=== PATIENT | male | born 1980 | race American Indian/Alaskan Native ===

== ENCOUNTER 2018-10-21 15:56 | Emergency (ER) | payer SELFPAY ==
--- NOTE | 2018-10-21 16:26 | Emergency Department Report ---
ED Syncope HPI - General Chief Complaint: Syncope Stated Complaint: POSSIBLE SEIZURE Time Seen by Provider: 10/21/18 16:17 Source: patient Exam Limitations: clinical condition, other - History of Present Illness Initial Comments: Patient is a 38-year-old male that presents emergency room with seizure-like activity and syncope. Patient was up in the L&D part of the hospital visiting his and the patient lost consciousness and seized. Patient does not have a history of seizure or syncope. Patient states he started back normal except for slightly lightheaded and tired. Patient states he doesn't recall what happened he describes waking up. Patient denies chest pain shortness of breath this time. Patient denies headache. Patient denies blurry vision. Per report from the staff in L&D, the patient has been with his loved one for a few days and not sleeping well and drinking multiple energy drinks per day and or stay awake. The patient also had postevent confusion. Timing/Prior Episodes: no prior history, single episode today Context: standing Loss of Consciousness: brief (seconds) Current Symptoms: lightheadedness - Related Data Allergies/Adverse Reactions: Allergies No Known Allergies Allergy (Unverified 10/21/18 16:09) ED Review of Systems ROS: Stated complaint: POSSIBLE SEIZURE Other details as noted in HPI Constitutional: malaise Eyes: denies: eye pain, eye discharge, vision change ENT: denies: ear pain, throat pain Respiratory: denies: cough, shortness of breath, wheezing Cardiovascular: denies: chest pain, palpitations Endocrine: no symptoms reported Gastrointestinal: denies: abdominal pain, nausea, diarrhea Genitourinary: denies: urgency, dysuria Musculoskeletal: denies: back pain, joint swelling, arthralgia Skin: denies: rash, lesions Neurological: denies: headache, weakness, paresthesias Psychiatric: denies: anxiety, depression Hematological/Lymphatic: denies: easy bleeding, easy bruising ED Past Medical Hx - Past Medical History Previous Medical History?: No - Surgical History Past Surgical History?: No - Family History Family history: no significant - Social History Smoking Status: Current Some Day Smoker Substance Use Type: Marijuana ED Physical Exam - General Limitations: No Limitations General appearance: alert, in no apparent distress - Head Head exam: Present: atraumatic, normocephalic - Eye Eye exam: Present: normal appearance, PERRL Pupils: Present: normal accommodation - ENT ENT exam: Present: mucous membranes moist - Neck Neck exam: Present: normal inspection - Respiratory Respiratory exam: Present: normal lung sounds bilaterally. Absent: respiratory distress, wheezes, rales - Cardiovascular Cardiovascular Exam: Present: regular rate, normal rhythm. Absent: systolic murmur, diastolic murmur, rubs, gallop - GI/Abdominal GI/Abdominal exam: Present: soft, normal bowel sounds. Absent: distended, tenderness, guarding - Rectal Rectal exam: Present: deferred - Extremities Exam Extremities exam: Present: normal inspection - Back Exam Back exam: Present: normal inspection - Neurological Exam Neurological exam: Present: alert, oriented X3 - Psychiatric Psychiatric exam: Present: normal affect, normal mood - Skin Skin exam: Present: warm, dry, intact, normal color. Absent: rash ED Course Vital Signs 10/21/18 10/21/18 10/21/18 15:59 16:00 16:02 Temperature 98.6 F Pulse Rate 111 H 107 H 108 H Respiratory 26 H 26 H 16 Rate Blood Pressure 105/48 105/48 103/63 O2 Sat by Pulse 97 99 Oximetry 10/21/18 10/21/18 10/21/18 16:27 16:30 17:00 Temperature Pulse Rate 107 H 65 Respiratory 16 21 19 Rate Blood Pressure 107/60 103/57 O2 Sat by Pulse 99 96 99 Oximetry 10/21/18 10/21/18 10/21/18 17:30 18:09 18:30 Temperature Pulse Rate 71 59 L 56 L Respiratory 16 15 19 Rate Blood Pressure 89/44 93/46 99/62 O2 Sat by Pulse 96 98 Oximetry 10/21/18 10/21/18 10/21/18 19:00 19:30 19:55 Temperature 98.4 F Pulse Rate 53 L 62 Respiratory 21 20 Rate Blood Pressure 110/67 109/70 O2 Sat by Pulse 100 99 Oximetry - Reevaluation(s) Reevaluation #1: Initial evaluation done. Patient is a and O 3 but the patient had some post- event confusion. Patient is unclear what happened after losing consciousness. Patient will have a CT of the head as well as a new onset seizure workup. 10/21/18 16:29 Reevaluation #2: Patient is alert and oriented 3. I discussed all results with patient. I discussed plan of care and admission with patient. Patient refused to be admitted. Risks discussed with patient. Patient signed out AMA. Patient voiced understanding of risks of leaving against medical advise from the hospital 10/21/18 18:54 ED Medical Decision Making - Lab Data Result diagrams: 10/21/18 16:20 10/21/18 16:20 - EKG Data -: EKG Interpreted by Me EKG shows normal: sinus rhythm, axis, intervals, QRS complexes, ST-T waves Rate: normal - Radiology Data Radiology results: report reviewed, image reviewed CT head/brain wo con INDICATION / CLINICAL INFORMATION: 38 years Male; sz. loc. syncope. TECHNIQUE: Routine CT head without contrast. All CT scans at this location are performed using CT dose reduction for ALARA by means of automated exposure control. COMPARISON: None. FINDINGS: BRAIN / INTRACRANIAL CONTENTS: No acute hemorrhage, mass effect, midline shift, hydrocephalus, or acute, large territorial infarct. No chronic infarct or focal atrophy. Normal brain volume and ventricular/sulcal size for age. No significant white matter abnormality. CRANIOCERVICAL JUNCTION: No significant abnormality. ORBITS: No significant abnormality of visualized orbits. SINUSES / MASTOIDS: Mild mucosal thickening is seen in the ethmoids. ADDITIONAL FINDINGS: None. IMPRESSION: 1. No focal mass, hemorrhage, hydrocephalus, or acute, large territorial infarct. - Medical Decision Making Patient is a 38-year-old male presents emergency room with complaints of syncope and possible seizure-like activity. Patient's labs unremarkable except for dehydration. Patient's CT negative. I discussed with patient being admitted to the hospital for further evaluation and treatment. And patient refused to be admitted. Patient signed AMA form. Patient given the risk of not being admitted. Patient voiced understanding of the risk. Patient advised to return to the ER if condition worsens. Patient advised to follow-up with his primary care in 2-3 days. Patient advised to follow-up with a neurologist. Patient instructed that he could still return to the ER if condition deteriorates or returns. - Differential Diagnosis seizure-like activity. Syncope. Dehydration. Critical Care Time: Yes Critical care attestation.: If time is entered above; I have spent that time in minutes in the direct care of this critically ill patient, excluding procedure time. Critical Care Time: 35 minutes ED Disposition Clinical Impression: Seizure-like activity, Dehydration Syncope Qualifiers: Syncope type: unspecified Qualified Code(s): R55 - Syncope and collapse Disposition: DC-07 LEFT AGAINST MED ADVICE Is pt being admited?: No Does the pt Need Aspirin: No Condition: Critical [facility] [Primary Care Provider[facility] - 2-3 Days Forms: AMA Form Time of Disposition: 18:54
[2018-10-21 16:31] LABS: Basophils % (Auto) 0.5 % (0.0-1.8); Eosinophils # (Auto) 0.1 K/mm3 (0.0-0.4); Eosinophils % (Auto) 1.1 % (0.0-4.3); Hematocrit 39.8 % (35.5-45.6); Hemoglobin 13.1 gm/dl (11.8-15.2); Lymphocytes # (Auto) 2.4 K/mm3 (1.2-5.4); Lymphocytes % (Auto) 26.7 % (13.4-35.0); Mean Corpuscular HGB Conc 33 % (32-34); Mean Corpuscular Volume 84 fl (84-94); Monocytes # (Auto) 0.6 K/mm3 (0.0-0.8); Monocytes % (Auto) 6.5 % (0.0-7.3); Platelet Count 235 K/mm3 (140-440); Red Blood Count 4.71 M/mm3 (3.65-5.03); Red Cell Distribution Width 13.4 % (13.2-15.2)
[2018-10-21 16:47] LABS: Creatine Kinase MB 1.3 ng/mL (0.0-4.0)
[2018-10-21 16:49] LABS: Alanine Aminotransferase 14 units/L (7-56); Albumin 4.1 g/dL (3.9-5); BUN/Creatinine Ratio 14; Blood Urea Nitrogen 21 mg/dL (9-20); Hemolysis Index 12
[2018-10-21] MEDS ORDERED: NACL 0.9% 1000 ML 1,000 ML IV ONE (17:45)
--- NOTE | 2018-10-21 18:23 | Cat Scan Report ---
CT head/brain wo con INDICATION / CLINICAL INFORMATION: 38 years Male; sz. loc. syncope. TECHNIQUE: Routine CT head without contrast. All CT scans at this location are performed using CT dos e reduction for ALARA by means of automated exposure control. COMPARISON: None. FINDINGS: BRAIN / INTRACRANIAL CONTENTS: No acute hemorrhage, mass effect, midline shift, hydrocephalus, or acu te, large territorial infarct. No chronic infarct or focal atrophy. Normal brain volume and ventricul ar/sulcal size for age. No significant white matter abnormality. CRANIOCERVICAL JUNCTION: No significant abnormality. ORBITS: No significant abnormality of visualized orbits. SINUSES / MASTOIDS: Mild mucosal thickening is seen in the ethmoids. ADDITIONAL FINDINGS: None. IMPRESSION: 1. No focal mass, hemorrhage, hydrocephalus, or acute, large territorial infarct. Signer Name: Jamie Gama MD, III Signed: 10/21/2018 6:19 PM Workstation Name: [id number]
[2018-10-21 19:55] VITALS: BP 109/70
[2018-10-21 20:03] LABS: Bilirubin,Urine NEG (Negative); Blood,Urine NEG (Negative); Color,Urine Yellow (Yellow); Mucus,Urine FEW /HPF; Protein,Urine <15 mg/dL mg/dL (Negative)
[2018-10-21 20:11] LABS: Amphetamine Screen,Urine PRESUMPTIVE NEGATIVE; Benzodiazepines Screen,Urine PRESUMPTIVE NEGATIVE; Cannabinoid Screen,Urine PRESUMPTIVE NEGATIVE; Cocaine Screen,Urine PRESUMPTIVE NEGATIVE; Methadone Screen,Urine PRESUMPTIVE NEGATIVE; Opiate Screen,Urine PRESUMPTIVE NEGATIVE
== END 2018-10-21 19:55 | disposition left against medical advice (07) ==
LOC: ED 15:56
DX: E86.0 Dehydration (principal); R55 Syncope and collapse; F17.200 Nicotine dependence, unspecified, uncomplicated; F12.90 Cannabis use, unspecified, uncomplicated
CPT/HCPCS: 36415; 70450; 80053; 80307; 81001; 82550; 82553; 84484; 85025; 85379; 93005; 93010; 96360; 99291; J7030